=== PATIENT | male | born 1965 | race Caucasian/White ===

== ENCOUNTER 2021-03-31 08:07 | Emergency (ER) | payer BC ==
[~2021-03-31] VITALS: Ht 185.4 cm; Wt 84.1 kg
[2021-03-31 08:48] LABS: BASOPHILS # (AUTO) 0.1 X10'3 (0-0.2); BASOPHILS % (AUTO) 0.9 % (0-1); EOSINOPHILS # (AUTO) 0.2 X10'3 (0-0.9); HEMATOCRIT 45.8 % (42.0-52.0); HEMOGLOBIN 15.3 g/dl (14.0-17.9); LYMPHOCYTES # (AUTO) 1.9 X10'3 (1.1-4.8); LYMPHOCYTES % (AUTO) 25.4 % (21-51); MEAN CORPUSCULAR HEMOGLOBIN 28.8 PG (27.0-31.0); MEAN CORPUSCULAR HGB CONC 33.3 g/dL (33.0-36.5); MEAN CORPUSCULAR VOLUME 86.5 FL (78-98); MEAN PLATELET VOLUME 7.9 FL (7.4-10.4); MONOCYTES # (AUTO) 0.5 X10'3 (0-0.9); MONOCYTES % (AUTO) 6.9 % (2-12); NEUTROPHILS # (AUTO) 4.8 X10'3 (1.8-7.7); NEUTROPHILS % (AUTO) 63.8 % (42-75); PLATELET COUNT 192 X10'3 (140-440); RED CELL DISTRIBUTION WIDTH 15.2 % (11.5-14.5); WHITE BLOOD COUNT 7.5 X10'3 (4.5-11.0)
[2021-03-31 08:57] LABS: ALANINE AMINOTRANSFERASE 44 U/L (12-78); ALBUMIN 3.9 G/DL (3.4-5.0); ALBUMIN/GLOBULIN RATIO 1.1 (1.1-1.5); ALKALINE PHOSPHATASE 84 IU/L (46-116); ANION GAP 10 (8-16); ASPARTATE AMINO TRANSFERASE 20 U/L (10-37); BILIRUBIN,TOTAL 0.3 MG/DL (0.1-1.0); BLOOD UREA NITROGEN 17 MG/DL (7-18); BUN/CREATININE RATIO 16.7 (5.4-32.0); CALCIUM 9.1 MG/DL (8.5-10.1); CHLORIDE 105 MMOL/L (99-107); CREATININE 1.02 MG/DL (0.60-1.10); GLUCOSE 101 MG/DL (70-104); POTASSIUM 4.7 MMOL/L (3.5-5.1); SODIUM 141 MMOL/L (135-145); TOTAL CARBON DIOXIDE 26.5 MMOL/L (24-32); TOTAL PROTEIN 7.4 G/DL (6.4-8.2); eGFR 75 ML/MIN
[2021-03-31] MEDS ORDERED: NO HOME MEDS (09:39)
[2021-03-31] MEDS ORDERED: OMEP20CA15 PO (10:34)
[2021-03-31 11:23] VITALS: BP 149/96
== END 2021-03-31 11:25 | disposition home or self-care (01) ==
LOC: ER 08:07
DX: R10.13 Epigastric pain (principal)
CPT/HCPCS: 36415; 71045; 80053; 83880; 84484; 85025; 93005; 99285

== ENCOUNTER 2024-10-26 12:36 | Emergency (ER) | payer SELFPAY ==
[~2024-10-26] VITALS: Ht 185.4 cm; Wt 93.2 kg
[~2024-10-26 12:36] MED LIST: NO HOME MEDS; OMEP20CA15 PO
[2024-10-26 13:03] VITALS: BP 150/102; PULSE 81; TEMP 97.6; O2SAT 95
--- NOTE | 2024-10-26 13:36 | Physician Documentation ---
History of Present Illness ~ Chief Complaint: Wrist pain Stated Complaint: R WRIST PAIN Time Seen by MD: 13:35 Primary Medical Doctor: Dr. Jiménez [facility] This is a 59-year-old male who presents to the emergency department due to onset of severe right wrist pain around the ulna. This started yesterday, he woke up this morning and it was much worse. He denies chills or fever, nausea or vomiting, chest pain or shortness of breath. He reports that his only medical history is that of hypertension. Tetanus within 5 years: No Medication Reconciliation Allergies: Coded Allergies: No Known Allergies (Unverified , 03/31/21) Scheduled Allopurinol* (Allopurinol*), 2 TAB PO DAILY Indomethacin (Indomethacin), 1 CAP PO Q8H Omeprazole (Omeprazole), 2 CAP PO BID Prednisone* (Prednisone*), 2 TAB PO DAILY Miscellaneous Medications Home Med List (No Home Medications), (Reported) Past Medical History Past Medical History: No Pertinent History Past Surgical History: noncontributory Alcohol Use: None Drug Use: none Lives In: Home Review of Systems ROS As stated above in the HPI, otherwise all systems are reviewed and negative. Physical Exam Vital Signs: Temperature: 97.6, Source: Temporal, Heart Rate: 81, Respiratory Rate: 16, BP: 150/102, Pulse Oximetry: 95, Weight: 93.180 Physical Exam General: Alert, no apparent distress. Neck: Full range of motion. Respiratory: Lungs clear, no respiratory distress. Chest: No accessory muscle use. Cardiovascular: Regular rate and rhythm, no murmurs. Gastrointestinal: Soft, nontender, nondistended. Bowels sounds present. Extremities: Reduced/painful ROM right wrist with area of erythema. No open areas. Neurologic: Oriented x4. Psychiatric: Normal mood and affect. Skin: Normal color, warm and dry. No edema, no ecchymosis. Progress Progress Note 1410: Patient co-examined with [facility] and plan of care formulated with his oversight. Results/Orders Results/Orders Vital Signs 10/26/24 13:03 Temp 97.6 Pulse 81 Resp 16 B/P (MAP) 150/102 Pulse Ox 95 EKG/XRAY/CT/US/VASC/MRI Bone/Soft Tissue X-Ray (Spine) : Additional Comment [facility] [address] [address] DIAGNOSTIC RADIOLOGY Patient: TONIE CHAMPAGNE Medical Record: [id number] [facility] : 1965, Age: 59 Sex: Male Location: ER Patient Status: [facility] ER Service Date/Time: 10/26/24/ 1307 Ordering Physician: ISAIAH FORTUNE MD Exam: WRIST, COMPLETE (3VW MIN) INDICATION: WRIST PAIN TECHNIQUE: 4 radiographic views of the right wrist were obtained. COMPARISON: None FINDINGS: There is no evidence of acute fracture or dislocation.The visualized joint space is well maintained.The alignment is anatomical.The surrounding soft tissues are unremarkable.There is no bony lesions or erosions identified. IMPRESSION: No Acute fracture. Electronically Signed by:RAMO GARCIA MD Date & Time: 10/26/24 135 Dictated by: RAMO GARCIA MD Dictation date and time: 10/26/24 135 Primary Care Provider: NO PRIMARY CARE PROVIDER cc: ISAIAH FORTUNE MD ~ Medical Decision Making Finger Diff Dx:Considerations: Include: Abrasion, Cellulitis, Contusion, Dislocation, Fracture, Hematoma, Laceration Additional Comment Normal xray. No hx of gout, but due to severe pain and onset of pain without injury and no fevers or chills, this is suspected. Care instructions given, including need to return if worse such as with fever and spreading redness. Departure Time of Disposition: 14:13 Disposition: 01 HOME / SELF CARE / HOMELESS Impression: Primary Impression: Wrist joint pain Qualified Codes: M25.532 - Pain in left wrist Discharge Instructions: Gout Additional Instructions: Take the prednisone and indomethacin as ordered. Use the allopurinol to lower uric acid levels once the pain is resolved. You don't want to use this during the acute inflammation phase or it could make you worse. Followup with your doctor soon. Return if worse as per the provided instructions. *You are being sent home with a suspected diagnosis of gout. Infection has not been ruled out. Please read these instructions carefully and follow them closely. -- *1. When to Return to the Emergency Department Return immediately if you develop any signs of infection, including: Fever or chills Redness, warmth, or swelling that is rapidly worsening Pus or drainage from the joint Severe pain that is not improving Feeling very unwell, weak, or confused *2. Medications Indomethacin (Indocin): Take as prescribed for pain and inflammation. The usual dose for acute gout is 50 mg by mouth three times a day until pain is tolerable, then reduce the dose and stop as directed.[8][11] Take with food or milk to reduce stomach upset. Watch for side effects: stomach pain, black or bloody stools, nausea, vomiting, chest pain, shortness of breath, or yellowing of the skin/eyes. If these occur, stop the medication and seek medical attention. Do not take indomethacin if you have a history of stomach ulcers, kidney disease, or severe heart disease unless specifically instructed. Prednisone: Take as prescribed for pain and swelling. The usual dose for a gout flare is 0.5 mg per kg of body weight per day, with a gradual taper over 710 days.[1][9] Take in the morning with food or milk. Do not stop prednisone suddenly; follow the taper instructions. Watch for side effects: mood changes, trouble sleeping, high blood sugar, swelling, or signs of infection. If you develop fever or feel unwell, contact your doctor immediately. Allopurinol: You have been prescribed allopurinol to lower uric acid and prevent future gout attacks. Do not start allopurinol until your current pain and swelling have completely resolved. Starting allopurinol during an acute attack can make the attack worse. When you do start allopurinol, begin with the dose prescribed (usually 100 mg daily) and increase as directed. If you develop a rash, painful urination, blood in the urine, or swelling of the lips or mouth, stop allopurinol and contact your doctor immediately. Drink plenty of fluids while taking allopurinol to help prevent kidney stones. *3. Dietary and Lifestyle Modifications Limit foods and drinks that can trigger gout: Avoid or reduce red meat, organ meats (like liver), shellfish, and foods high in purines. Limit alcohol, especially beer and liquor. Avoid drinks sweetened with high-fructose corn syrup (such as regular sodas). Choose low-fat dairy products, fresh fruits (especially berries and grapes), and vegetables. Maintain a healthy weight and stay physically active. *4. Other Important Instructions If you are prescribed colchicine or other medications, take them exactly as directed. Do not take aspirin unless instructed, as it can worsen gout. If you have kidney disease or other chronic conditions, follow your doctor's instructions carefully. Keep a list of your medications and bring it to all appointments. *5. Follow-Up Schedule a follow-up appointment with your doctor or drafting teacher. If infection is suspected or confirmed, further testing and treatment may be needed. *6. Questions or Concerns If you have any questions about your medications or symptoms, contact your healthcare provider. -- Summary: You are being treated for a possible gout attack. Watch closely for signs of infection and return for care if they develop. Use indomethacin and prednisone as prescribed for pain and swelling. Do not start allopurinol until your pain has resolved. Make dietary changes to help prevent future attacks. Follow up with your doctor as directed. Referrals: NO PRIMARY CARE PROVIDER (PCP) Prescriptions Prednisone* (Prednisone*) 20 Mg Tablet 2 TAB PO DAILY, #10 TAB Prov: EDITH FARIA NP 10/26/24 Indomethacin (Indomethacin) 50 Mg Capsule 1 CAP PO Q8H for arthritis for 10 Days, #30 CAP 0 Refills with food Prov: EDITH FARIA NP 10/26/24 Allopurinol* (Allopurinol*) 100 Mg Tablet 2 TAB PO DAILY for 30 Days, #60 TAB Prov: EDITH FARIA NP 10/26/24 Education Educated: Patient Educated regarding: diagnosis, treatment, prognosis, need for follow up Signature Scribe Signature: x Attestation: The note accurately reflects work and decisions made by me.Edith Ferguson NP 10/26/24 14:23 EDITH FARIA NP Oct 26, 2024 13:36
--- NOTE | 2024-10-26 13:57 | RADIOLOGY REPORT ---
INDICATION: WRIST PAIN TECHNIQUE: 4 radiographic views of the right wrist were obtained. COMPARISON: None FINDINGS: There is no evidence of acute fracture or dislocation.The visualized joint space is well maintained.The alignment is anatomical.The surrounding soft tissues are unremarkable.There is no bony lesions or erosions identified. IMPRESSION: No Acute fracture.
[2024-10-26] MEDS ORDERED: ALLO100T PO (14:14)
[2024-10-26] MEDS ORDERED: INDO50CA96 PO (14:14)
[2024-10-26] MEDS ORDERED: PRED20TA PO (14:14)
[2024-10-26 14:28] VITALS: RESP 16
== END 2024-10-26 14:43 | disposition home or self-care (01) ==
LOC: ER 12:36
DX: M25.531 Pain in right wrist (principal); I10 Essential (primary) hypertension; M19.90 Unspecified osteoarthritis, unspecified site; Z79.899 Other long term (current) drug therapy
CPT/HCPCS: 73110; 99283